=== PATIENT | male | born 1990 | race Caucasian/White ===

== ENCOUNTER 2023-09-17 13:34 | Emergency (ER) | payer OTHER ==
[2023-09-17] MEDS: Bacitracin Oint 1 GM U/D Packet TOP ONE (15:15)
== END 2023-09-17 15:20 | disposition home or self-care (01) ==
LOC: JP.ED 13:34
DX: S66.911A Strain of unspecified muscle, fascia and tendon at wrist and hand level, right hand, initial encounter (principal); S69.81XA Other specified injuries of right wrist, hand and finger(s), initial encounter; Z87.891 Personal history of nicotine dependence; Z88.1 Allergy status to other antibiotic agents; W22.8XXA Striking against or struck by other objects, initial encounter
CPT/HCPCS: 73130-RT; 99283